=== PATIENT | male | born 1990 | race Caucasian/White ===

== ENCOUNTER 2021-04-12 10:21 | Emergency (ER) | payer OTHER, BC ==
[2021-04-12] MEDS ORDERED: Bacitracin Oint 1 GM U/D Packet TOP ONE (11:08)
[2021-04-12] MEDS ORDERED: Diphtheria,Pertussis(Acell),Tetanus Vaccine 0.5 ML Syringe IM ONE (11:08)
[2021-04-12] MEDS: Silver Nitrate Applicator Each TOP ONE ×2 (11:18→11:30)
== END 2021-04-12 11:34 | disposition home or self-care (01) ==
LOC: JP.ED 10:21
DX: S61.213A Laceration without foreign body of left middle finger without damage to nail, initial encounter (principal); Z23 Encounter for immunization; W27.0XXA Contact with workbench tool, initial encounter
CPT/HCPCS: 12001; 90471; 90715; 99282-25; 99284

== ENCOUNTER 2021-10-14 12:01 | Emergency (ER) | payer OTHER, BC ==
[2021-10-14] MEDS ORDERED: Bacitracin Oint 1 GM U/D Packet TOP ONE (13:13)
== END 2021-10-14 14:05 | disposition home or self-care (01) ==
LOC: JP.ED 12:01
DX: S61.111A Laceration without foreign body of right thumb with damage to nail, initial encounter (principal); W26.8XXA Contact with other sharp object(s), not elsewhere classified, initial encounter
CPT/HCPCS: 99282; 99283

== ENCOUNTER 2022-03-30 10:42 | Emergency (ER) | payer BC | END 2022-03-30 11:23 | disposition home or self-care (01) | LOC: JP.ED 10:42 | DX: M25.521 Pain in right elbow (principal); X50.3XXA Overexertion from repetitive movements, initial encounter | CPT/HCPCS: 99281; 99283 ==

== ENCOUNTER 2022-06-04 13:13 | Emergency (ER) | payer BC | END 2022-06-04 13:58 | disposition home or self-care (01) | LOC: JP.ED 13:13 | DX: U07.1 COVID-19 (principal) | CPT/HCPCS: 99282; 99283; U0002 ==